=== PATIENT | female | born 1970 | race Caucasian/White ===

== ENCOUNTER 2019-09-20 14:34 | Emergency (ER) | payer OTHER ==
[~2019-09-20] VITALS: Ht 167.6 cm; Wt 63.0 kg
[2019-09-20] MEDS ORDERED: IV NORMAL SALINE 1,000ML 1,000 ML IV ONE (15:15)
[2019-09-20] MEDS ORDERED: MORPHINE SULFATE 2 MG/ML DISP.SYRIN. IV ONE (15:15)
[2019-09-20] MEDS ORDERED: ONDANSETRON PF 4 MG/2 ML VIAL. IVP ONE (15:15)
[2019-09-20 15:25] LABS: BASO # 0.1 x10^3/uL (0.0-0.2); BASO % 1 % (0-3); EOS # 1.3 x10^3/uL (0.0-0.7); EOS % 12 % (0-3); HEMATOCRIT 38.5 % (36.0-47.0); HEMOGLOBIN 12.6 g/dL (12.0-15.5); LYMPH # 3.4 x10^3/uL (1.0-4.8); LYMPH % 32 % (24-48); MEAN CORPUSCULAR HEMOGLOBIN 29 pg (25-35); MEAN CORPUSCULAR HGB CONC 33 g/dL (31-37); MEAN CORPUSCULAR VOLUME 89 fL (79-100); MONO # 0.7 x10^3/uL (0.0-1.1); MONO % 6 % (0-9); NEUT # 5.3 x10^3uL (1.8-7.7); NEUT % 49 % (31-73); PLATELET COUNT 275 x10^3/uL (140-400); RED BLOOD COUNT 4.31 x10^6/uL (3.50-5.40); RED CELL DISTRIBUTION WIDTH 13.9 % (11.5-14.5); WHITE BLOOD COUNT 10.7 x10^3/uL (4.0-11.0)
[2019-09-20 15:27] LABS: CALCIUM 9.3 mg/dL (8.5-10.1); CREATININE 0.8 mg/dL (0.6-1.0); GFR 76.6; POTASSIUM 3.7 mmol/L (3.5-5.1)
[2019-09-20] MEDS ORDERED: IOHEXOL 300 MG/ML 75 ML VIAL. IV ONE (15:30)
[2019-09-20 15:32] LABS: BILIRUBIN,URINE NEG (NEG); CLARITY,URINE CLEAR; COLOR,URINE YELLOW; GLUCOSE,URINE NEG (NEG)
[2019-09-20 15:33] LABS: BACTERIA,URINE 0 /HPF (0-FEW); NITRITE,URINE NEG (NEG); RBC,URINE 0 /HPF (0-2); SQUAMOUS EPITHELIAL CELL,UR OCC /LPF; UROBILINOGEN,URINE 0.2 mg/dL (0.2 mg/dL)
[2019-09-20 15:34] LABS: ALBUMIN 4.2 g/dL (3.4-5.0); ALBUMIN/GLOBULIN RATIO 1.3 (1.0-1.7); TOTAL BILIRUBIN 0.2 mg/dL (0.2-1.0); TOTAL PROTEIN 7.4 g/dL (6.4-8.2)
--- NOTE | 2019-09-20 15:59 | RAD ---
EXAM: Abdomen and pelvis CT with intravenous contrast. HISTORY: Right lower quadrant pain. TECHNIQUE: Computed tomographic images of the abdomen and pelvis were obtained following the administration of intravenous contrast. Multiplanar reformatting was performed. *One or more of the following individualized dose reduction techniques were utilized for this examination: 1. Automated exposure control. 2. Adjustment of the mA and/or kV according to patient size. 3. Use of iterative reconstruction technique. COMPARISON: None. FINDINGS: Evaluation of the lower thorax demonstrates no infiltrate or pleural effusion. There is posterior dependent and basilar atelectasis. There is a tiny cyst or pneumatocele within the left lung base. There are implanted breast prostheses. The heart is normal in size. No hepatic lesion is seen. The gallbladder, pancreas, spleen and adrenal glands are unremarkable. There is a partially duplicated right renal collecting system. There is no hydronephrosis or solid or cystic renal lesion. The cecum is positioned within the midabdomen to the left of midline. The appendix is normal in appearance. There is no evidence of bowel show reduction or abnormal bowel wall thickening. The uterus is retroverted. There are bilateral ovarian follicles. The aorta is normal in caliber. There is no lymphadenopathy. There are few benign bone islands. There is no suspicious osseous lesion. IMPRESSION: No convincing acute abdominal or pelvic finding. Electronically signed by: Carly Gudino MD (09/20/2019 3:57 PM) [facility] – [place]
--- NOTE | 2019-09-20 16:14 | PHYS DOC ---
Past History Past Medical History: Anxiety, Asthma Past Surgical History: Other Additional Past Surgical Histo: breast augmentation, jaw wired Alcohol Use: Occasionally Adult General Chief Complaint Chief Complaint: ABDOMINAL PAIN HPI HPI 48-year-old female presents with right lower quadrant abdominal pain. The pain started relatively suddenly about 9:30. He went from mild to moderate to severe within 30 minutes. She tried going to bathroom, taking Tums, taking ibuprofen. Nothing has helped. She never had pain like this before so she is concerned. She believes she is postmenopausal, though she did have one menses about 6 months ago. That was the first one in 2 years. She denies fever or chills. She's had no vomiting. Review of Systems Review of Systems Constitutional: Denies fever or chills [] Eyes: Denies change in visual acuity, redness, or eye pain [] HENT: Denies nasal congestion or sore throat [] Respiratory: Denies cough or shortness of breath [] Cardiovascular: No additional information not addressed in HPI [] GI: Right lower quadrant abdominal pain. Denies nausea, vomiting, bloody stools or diarrhea [] : Denies dysuria or hematuria [] Musculoskeletal: Denies back pain or joint pain [] Integument: Denies rash or skin lesions [] Neurologic: Denies headache, focal weakness or sensory changes [] Endocrine: Denies polyuria or polydipsia [] All other systems were reviewed and found to be within normal limits, except as documented in this note. Current Medications Current Medications Current Medications Medications (Trade) Dose Ordered Sig/Ameena Start Time Stop Time Status Last Admin Dose Admin Iohexol (Omnipaque 300 Mg/ml) 75 ml 1X ONCE 09/20/19 15:30 09/20/19 15:31 DC 09/20/19 15:41 75 ML Morphine Sulfate (Morphine 2mg Syringe) 2 mg 1X ONCE 09/20/19 15:15 09/20/19 15:16 DC 09/20/19 15:29 2 MG Ondansetron HCl (Zofran) 4 mg 1X ONCE 09/20/19 15:15 09/20/19 15:16 DC 09/20/19 15:29 4 MG Sodium Chloride 1,000 ml @ 1,000 mls/hr 1X ONCE 09/20/19 15:15 09/20/19 16:14 09/20/19 15:29 1,000 MLS/HR Allergies Allergies Allergies Coded Allergies Type Severity Reaction Last Updated Verified No Known Drug Allergies 09/20/19 No Physical Exam Physical Exam Constitutional: Well developed, well nourished, no acute distress, non-toxic appearance. [] HENT: Normocephalic, atraumatic, bilateral external ears normal, oropharynx moist, no oral exudates, nose normal. [] Eyes: PERRLA, EOMI, conjunctiva normal, no discharge. [] Neck: Normal range of motion, no tenderness, supple, no stridor. [] Cardiovascular:Heart rate regular rhythm, no murmur [] Lungs & Thorax: Bilateral breath sounds clear to auscultation [] Abdomen: Bowel sounds normal, soft, moderate right lower quadrant tenderness, no masses, no pulsatile masses. [] Skin: Warm, dry, no erythema, no rash. [] Back: No tenderness, no CVA tenderness. [] Extremities: No tenderness, no cyanosis, no clubbing, ROM intact, no edema. [] Neurologic: Alert and oriented X 3, normal motor function, normal sensory function, no focal deficits noted. [] Psychologic: Affect normal, judgement normal, mood normal. [] Current Patient Data Vital Signs Vital Signs Date Time Temp Pulse Resp B/P (MAP) Pulse Ox O2 Delivery O2 Flow Rate FiO2 09/20/19 15:29 18 98 09/20/19 14:44 98.8 77 161/74 (103) Room Air Lab Results Laboratory Tests Test 09/20/19 14:50 White Blood Count 10.7 x10^3/uL (4.0-11.0) Red Blood Count 4.31 x10^6/uL (3.50-5.40) Hemoglobin 12.6 g/dL (12.0-15.5) Hematocrit 38.5 % (36.0-47.0) Mean Corpuscular Volume 89 fL (79-100) Mean Corpuscular Hemoglobin 29 pg (25-35) Mean Corpuscular Hemoglobin Concent 33 g/dL (31-37) Red Cell Distribution Width 13.9 % (11.5-14.5) Platelet Count 275 x10^3/uL (140-400) Neutrophils (%) (Auto) 49 % (31-73) Lymphocytes (%) (Auto) 32 % (24-48) Monocytes (%) (Auto) 6 % (0-9) Eosinophils (%) (Auto) 12 % (0-3) H Basophils (%) (Auto) 1 % (0-3) Neutrophils # (Auto) 5.3 x10^3uL (1.8-7.7) Lymphocytes # (Auto) 3.4 x10^3/uL (1.0-4.8) Monocytes # (Auto) 0.7 x10^3/uL (0.0-1.1) Eosinophils # (Auto) 1.3 x10^3/uL (0.0-0.7) H Basophils # (Auto) 0.1 x10^3/uL (0.0-0.2) Urine Collection Type Unknown Urine Color Yellow Urine Clarity Clear Urine pH 6.0 Urine Specific Calvin 1.010 Urine Protein Neg (NEG-TRACE) Urine Glucose (UA) Neg mg/dL (NEG) Urine Ketones (Stick) Neg mg/dL (NEG) Urine Blood Neg (NEG) Urine Nitrite Neg (NEG) Urine Bilirubin Neg (NEG) Urine Urobilinogen Dipstick 0.2 mg/dL (0.2 mg/dL) Urine Leukocyte Esterase Trace (NEG) Urine RBC 0 /HPF (0-2) Urine WBC 1-4 /HPF (0-4) Urine Squamous Epithelial Cells Occ /LPF Urine Bacteria 0 /HPF (0-FEW) Sodium Level 139 mmol/L (136-145) Potassium Level 3.7 mmol/L (3.5-5.1) Chloride Level 102 mmol/L (98-107) Carbon Dioxide Level 26 mmol/L (21-32) Anion Gap 11 (6-14) Blood Urea Nitrogen 18 mg/dL (7-20) Creatinine 0.8 mg/dL (0.6-1.0) Estimated GFR (Cockcroft-Gault) 76.6 BUN/Creatinine Ratio 23 (6-20) H Glucose Level 90 mg/dL (70-99) Calcium Level 9.3 mg/dL (8.5-10.1) Total Bilirubin 0.2 mg/dL (0.2-1.0) Aspartate Amino Transferase (AST) 25 U/L (15-37) Alanine Aminotransferase (ALT) 26 U/L (14-59) Alkaline Phosphatase 82 U/L (46-116) Total Protein 7.4 g/dL (6.4-8.2) Albumin 4.2 g/dL (3.4-5.0) Albumin/Globulin Ratio 1.3 (1.0-1.7) EKG EKG [] Radiology/Procedures Radiology/Procedures [] Impressions: EXAM: Abdomen and pelvis CT with intravenous contrast. HISTORY: Right lower quadrant pain. TECHNIQUE: Computed tomographic images of the abdomen and pelvis were obtained following the administration of intravenous contrast. Multiplanar reformatting was performed. *One or more of the following individualized dose reduction techniques were utilized for this examination: 1. Automated exposure control. 2. Adjustment of the mA and/or kV according to patient size. 3. Use of iterative reconstruction technique. COMPARISON: None. FINDINGS: Evaluation of the lower thorax demonstrates no infiltrate or pleural effusion. There is posterior dependent and basilar atelectasis. There is a tiny cyst or pneumatocele within the left lung base. There are implanted breast prostheses. The heart is normal in size. No hepatic lesion is seen. The gallbladder, pancreas, spleen and adrenal glands are unremarkable. There is a partially duplicated right renal collecting system. There is no hydronephrosis or solid or cystic renal lesion. The cecum is positioned within the midabdomen to the left of midline. The appendix is normal in appearance. There is no evidence of bowel show reduction or abnormal bowel wall thickening. The uterus is retroverted. There are bilateral ovarian follicles. The aorta is normal in caliber. There is no lymphadenopathy. There are few benign bone islands. There is no suspicious osseous lesion. IMPRESSION: No convincing acute abdominal or pelvic finding. Electronically signed by: Carly Mckenna MD (09/20/2019 3:57 PM) [facility] [place]ATED AND SIGNED BY: CARLY MCKENNA MD DATE: 09/20/19 1557 CC: ABDI IZQUIERDO DO; RAFA GALARZA MD ~ Transvaginal pelvic ultrasound 09/20/2019 CLINICAL HISTORY: Right pelvic pain. TECHNIQUE: A transvaginal ultrasound study was performed. Multiple images were obtained. FINDINGS: Comparison is made to the patient's CT scan of the pelvis performed earlier today. The uterus is retroverted. It is normal in size and echogenicity. It measures 6.4 x 4.3 x 3.8 cm in longitudinal, transverse, and AP dimensions. No focal abnormality of the uterus is seen. The endometrial echo complex measures 3 mm in thickness which is within normal limits. Neither ovary is visualized. They are obscured by bowel gas. No adnexal mass is seen. No free fluid is noted. IMPRESSION: Negative study. Electronically signed by: Jack Mckeon MD (09/20/2019 5:12 PM) [id number] DICTATED AND SIGNED BY: JACK MCKEON MD DATE: 09/20/191711 CC: ABDI IZQUIERDO DO; RAFA GALARZA MD ~ Course & Med Decision Making Course & Med Decision Making Pertinent Labs and Imaging studies reviewed. (See chart for details) Patient's labs are unremarkable. Her urinalysis is negative for infection. Her CT not showing any acute findings. I will order an ultrasound to rule out torsion. Patient's ultrasound does not specifically visualize the ovaries. There were no abnormal findings. I personally reviewed the CT abdomen and pelvis she does have moderate stool burden. There is a couple of areas of larger caliber stool. This could be related to her pain. I have advised that she do a bowel cleanout. She is stable for discharge at this time. [] Dragon Disclaimer Dragon Disclaimer This electronic medical record was generated, in whole or in part, using a voice recognition dictation system. Departure Departure: Impression: Primary Impression: RLQ abdominal pain Additional Impression: Constipation by delayed colonic transit Disposition: HOME, SELF-CARE Condition: IMPROVED Referrals: RAFA GALARZA MD (PCP) Patient Instructions: Abdominal Pain, Women, Constipation, Adult, [place] Problem Qualifiers ABDI IZQUIERDO DO Sep 20, 2019 16:14
--- NOTE | 2019-09-20 17:15 | RAD ---
Transvaginal pelvic ultrasound 09/20/2019 CLINICAL HISTORY: Right pelvic pain. TECHNIQUE: A transvaginal ultrasound study was performed. Multiple images were obtained. FINDINGS: Comparison is made to the patient's CT scan of the pelvis performed earlier today. The uterus is retroverted. It is normal in size and echogenicity. It measures 6.4 x 4.3 x 3.8 cm in longitudinal, transverse, and AP dimensions. No focal abnormality of the uterus is seen. The endometrial echo complex measures 3 mm in thickness which is within normal limits. Neither ovary is visualized. They are obscured by bowel gas. No adnexal mass is seen. No free fluid is noted. IMPRESSION: Negative study. Electronically signed by: Joel Mckeon MD (09/20/2019 5:12 PM) [id number]
[2019-09-20] MEDS ORDERED: HYDR-3165 PO (17:24)
[2019-09-20] MEDS ORDERED: HYDROcodone/APAP 5/325MG 1 TAB TABLET PO ONE (17:30)
[2019-09-20 17:50] VITALS: BP 152/82
== END 2019-09-20 17:52 | disposition home or self-care (01) ==
LOC: ER 14:34
DX: K59.01 Slow transit constipation (principal); J45.909 Unspecified asthma, uncomplicated
CPT/HCPCS: 36415; 74177; 76830; 80053; 81001; 85025; 87086; 96374; 96375; 99285; J2270; J2405; Q9967; J7030